=== PATIENT | female | born 1970 | race Caucasian/White ===

== ENCOUNTER 2017-07-20 13:19 | Emergency (ER) | payer SELFPAY ==
[~2017-07-20] VITALS: Ht 167.6 cm; Wt 136.1 kg
[~2017-07-20 13:19] MED LIST: AMOXICILLIN250 MG PO; ANAPROX DS550 MG PO; ANTIVERT/2525 M1 PO; AUGMENTIN 875875 MG PO; BACTRIM DS 8001 TA1 PO; CARDIZEM LA240 MG PO; CHILDREN'S CLEA10 MG PO; CLARITIN10 MG PO; Duoneb 3ML 3 MG/3 ML NEB; FERRO-TIME325 MG PO; FLEXERIL10 MG PO; FLONASE ALLERG9.9 ML NS; FOLGARD TABLET1 EACH PO; HYDR12.5C PO; IRON325 M1 PO; LISINOPRIL10 M1 PO; LISINOPRIL10 MG PO; LOPRESSOR50 M1 PO; LORATADINE10 MG PO; NAPROSYN EC375 MG PO; OMEPRAZOLE D/R20 MG PO; PREDNICOT20 MG PO; PREDNISONE10 MG PO; PRILOSEC20 M1 PO; PROAIR HFA8.5 GM IH; TRAZODONE50 MG PO; TUDORZA PRESS400 MCG IH; VIBRAMYCIN100 MG PO; VICODIN 5/500 505 MG PO; VITAMIN D2000 IU PO; VITAMIN D32000 UNIT PO; XOPENEX HF0.045 MG/A IH; ZITHROMAX Z-PA250 MG PO; ZITHROMAX500 MG PO; ZOLPIDEM10 MG PO; ZYRTEC10 MG PO
[2017-07-20 13:57] LABS: BASO % 0.5 % (0.0-1.0); EOS # 0.6 10*3/uL (0.0-0.4); EOS % 6.5 % (1.0-4.0); HEMATOCRIT 36.9 % (37.0-47.0); HEMOGLOBIN 11.1 g/dl (12.0-16.0); LYMPH # 1.9 10*3/uL (1.3-4.4); LYMPH % 22.1 % (27.0-41.0); MEAN CELL VOLUME 83.7 fl (81.0-99.0); MEAN CORPUSCULAR HGB 25.2 pg (27.0-31.0); MEAN CORPUSCULAR HGB CONC 30.1 g/dl (33.0-37.0); MEAN PLATELET VOLUME 9.6 fl (9.6-12.3); MONO # 0.5 10*3/uL (0.1-1.0); MONO % 5.7 % (3.0-9.0); NEUT # 5.4 10*3/uL (2.3-7.9); NEUT % 63.7 % (47.0-73.0); PLATELET COUNT AUTOMATED 249 10*3/uL (130-400); RED BLOOD COUNT 4.41 10*6/uL (4.10-5.10); RED CELL DISTRI WIDTH 15.9 % (0-14.5); WHITE BLOOD COUNT 8.5 10*3/uL (4.8-10.8)
[2017-07-20 13:59] LABS: BILIRUBIN NEGATIVE (NEGATIVE); BLOOD TRACE-LYSED (NEGATIVE); CLARITY SL CLOUDY (CLEAR); COLOR ORANGE (YELLOW); GLUCOSE NEGATIVE (NEGATIVE); KETONE NEGATIVE (NEGATIVE); LEUKO ESTERASE 1+ (NEGATIVE); NITRITE POSITIVE (NEGATIVE); SPECIFIC GRAVITY 1.025 (1.005-1.030)
[2017-07-20 14:15] LABS: ALBUMIN 3.3 gm/dl (3.1-4.5); ALKALINE PHOSPHATASE 92 U/L (45-117); BUN 21 mg/dl (7-24); CHLORIDE 106 mmol/L (98-107); CREATININE 0.89 mg/dL (0.55-1.02); POTASSIUM 4.1 mmol/L (3.5-5.1); SGOT/AST 9 IU/L (3-35); SGPT/ALT 19 U/L (12-78); SODIUM 142 mmol/L (136-145)
[2017-07-20 14:19] LABS: BACTERIA 1+; EPITHELIAL CELLS TNTC
[2017-07-20] MEDS ORDERED: PYRIDIUM200 M1 PO (14:25)
[2017-07-20] MEDS ORDERED: Bactrim DS PO (14:25)
== END 2017-07-20 18:06 | disposition home or self-care (01) ==
LOC: ED 13:19
PROVIDERS: Nurse Practitioner Family
DX: N39.0 Urinary tract infection, site not specified (principal); J45.909 Unspecified asthma, uncomplicated; I10 Essential (primary) hypertension; E66.9 Obesity, unspecified; Z79.899 Other long term (current) drug therapy

== ENCOUNTER 2017-07-23 22:36 | Emergency (ER) | payer SELFPAY ==
[~2017-07-23] VITALS: Ht 167.6 cm; Wt 136.1 kg
[~2017-07-23 22:36] MED LIST changes: +Bactrim DS PO; +PYRIDIUM200 M1 PO
[2017-07-23 23:46] LABS: BILIRUBIN NEGATIVE (NEGATIVE); BLOOD 1+ (NEGATIVE); CLARITY CLEAR (CLEAR); COLOR YELLOW (YELLOW); GLUCOSE NEGATIVE (NEGATIVE); KETONE NEGATIVE (NEGATIVE); LEUKO ESTERASE TRACE (NEGATIVE); NITRITE NEGATIVE (NEGATIVE); PH 5.5 (5.0-9.0); SPECIFIC GRAVITY >= 1.030 (1.005-1.030); UROBILINOGEN 0.2 E.U./dl (0.2-1.0)
[2017-07-23 23:55] LABS: EPITHELIAL CELLS 20-25
[2017-07-23 23:56] LABS: BACTERIA TRACE
[2017-07-24] MEDS ORDERED: KETOROLAC10 MG PO (00:13)
[2017-07-24] MEDS ORDERED: Orphenadrine C100 MG PO (00:13)
== END 2017-07-24 00:34 | disposition home or self-care (01) ==
LOC: ED 22:36
PROVIDERS: Emergency Medicine Emergency Medical Services
DX: S39.012A Strain of muscle, fascia and tendon of lower back, initial encounter (principal); I10 Essential (primary) hypertension; Z88.8 Allergy status to other drugs, medicaments and biological substances; X50.9XXA Other and unspecified overexertion or strenuous movements or postures, initial encounter; Y93.89 Activity, other specified; Y92.9 Unspecified place or not applicable; Y99.9 Unspecified external cause status

== ENCOUNTER 2017-07-30 13:21 | Emergency (ER) | payer SELFPAY ==
[~2017-07-30] VITALS: Ht 167.6 cm; Wt 136.1 kg
[~2017-07-30 13:21] MED LIST changes: +KETOROLAC10 MG PO; +Orphenadrine C100 MG PO
[2017-07-30] MEDS ORDERED: MEDROL DOSEPAK4 MG PO (13:43)
[2017-07-30] MEDS ORDERED: Orphenadrine C100 MG PO (13:44)
== END 2017-07-30 14:17 | disposition home or self-care (01) ==
LOC: ED 13:21
DX: M54.5 Low back pain (principal); J45.909 Unspecified asthma, uncomplicated; I10 Essential (primary) hypertension; E66.9 Obesity, unspecified; Z79.899 Other long term (current) drug therapy

== ENCOUNTER 2018-10-25 22:54 | Inpatient (IN) | payer OTHER ==
[~2018-10-25] VITALS: Ht 170.1 cm; Wt 146.5 kg
--- NOTE | ~2018-10-25 | EKG ---
[place], [place] ELECTROCARDIOGRAM REPORT NAME: CHRISTO RICHARDSON UNIT #: [id number] ROOM: 427 DOCTOR: ELODIA DRAFT REPORT BIRTHDATE: [address] [facility] Test Date: 2018-10-26 Test Time: 06:46:51 Pat Name: CHRISTO RICHARDSON Department: Room: 427 Gender: F Electric Crane Operator: Elyssa Leslie : 1970 Requested By: BI ALLEN Order Number: [id number] Reading MD: Maikol Tam MD Measurements Intervals [place] Rate: 59 P: 16 NM: 169 QRS: 36 QRSD: 94 T: 3 QT: 455 QTc: 451 Interpretive Statements Sinus rhythm Low voltage, precordial leads Electronically Signed On 10-27-2018 7:53:08 PST by Maikol Tam MD CM:EKGRPT:ELECTROCARDIOGRAM REPORT [id number] BI WATKINS DRAFT REPORT BI ALLEN DO
--- NOTE | ~2018-10-25 | EKG ---
[place], [place] ELECTROCARDIOGRAM REPORT NAME: CHRISTO RICHARDSON UNIT #: [id number] ROOM: 427 DOCTOR: ELODIA DRAFT REPORT BIRTHDATE: [birth year] [facility] Test Date: 2018-10-26 Test Time: 10:53:33 Pat Name: CHRISTO RICHARDSON Department: Room: 427 Gender: F Inspector Packager: Elyssa Leslie : 1970 Requested By: BI ALLEN Order Number: [id number] Reading MD: Maikol Tam MD Measurements Intervals [place] Rate: 71 P: 21 GA: 156 QRS: 15 QRSD: 89 T: -22 QT: 386 QTc: 420 Interpretive Statements Sinus rhythm Low voltage, precordial leads Borderline repolarization abnormality Baseline wander in lead(s) II,III,aVF Electronically Signed On 10-27-2018 7:53:17 PST by Maikol Tam MD CM:EKGRPT:ELECTROCARDIOGRAM REPORT [id number] BI WATKINS DRAFT REPORT BI ALLEN DO
--- NOTE | ~2018-10-25 | EKG ---
[place], [place] ELECTROCARDIOGRAM REPORT NAME: CHRISTO RICHARDSON UNIT #: [id number] ROOM: 427 DOCTOR: ELODIA DRAFT REPORT BIRTHDATE: [birth year] [facility] Test Date: 2018-10-25 Test Time: 23:01:38 Pat Name: CHRISTO RICHARDSON Department: Room: 427 Gender: F Shale Planer Operator Helper: Amira Ayoub : 1970 Requested By: BI ALLEN Order Number: [id number] Reading MD: Maikol Tam MD Measurements Intervals [place] Rate: 94 P: 26 HI: 149 QRS: 22 QRSD: 88 T: -7 QT: 375 QTc: 469 Interpretive Statements Sinus rhythm Low voltage, precordial leads Borderline T abnormalities, anterior leads Electronically Signed On 10-27-2018 7:52:59 PST by Maikol Tam MD CM:EKGRPT:ELECTROCARDIOGRAM REPORT [id number] BI WATKINS DRAFT REPORT BI ALLEN DO
[~2018-10-25 22:54] MED LIST changes: +MEDROL DOSEPAK4 MG PO
[2018-10-25 22:58] VITALS: BP 164/94
[2018-10-25 23:29] LABS: BASO # 0.1 10*3/uL (0.0-0.1); BASO % 0.4 % (0.0-1.0); EOS # 0.3 10*3/uL (0.0-0.4); EOS % 2.3 % (1.0-4.0); HEMATOCRIT 39.9 % (37.0-47.0); LYMPH # 2.3 10*3/uL (1.3-4.4); LYMPH % 17.8 % (27.0-41.0); MEAN CELL VOLUME 81.9 fl (81.0-99.0); MEAN CORPUSCULAR HGB 24.6 pg (27.0-31.0); MEAN CORPUSCULAR HGB CONC 30.1 g/dl (33.0-37.0); MONO # 0.9 10*3/uL (0.1-1.0); MONO % 6.7 % (3.0-9.0); NEUT # 9.3 10*3/uL (2.3-7.9); NEUT % 72.3 % (47.0-73.0); PLATELET COUNT AUTOMATED 266 10*3/uL (130-400); RED BLOOD COUNT 4.87 10*6/uL (4.10-5.10); RED CELL DISTRI WIDTH 15.9 % (0-14.5); WHITE BLOOD COUNT 12.8 10*3/uL (4.8-10.8)
[2018-10-25 23:30] VITALS: BP 154/95
[2018-10-25 23:30] LABS: ALBUMIN 3.6 gm/dl (3.1-4.5); ALKALINE PHOSPHATASE 108 U/L (45-117); BUN 12 mg/dl (7-24); CHLORIDE 108 mmol/L (98-107); CREATININE 1.01 mg/dL (0.55-1.02); POTASSIUM 3.8 mmol/L (3.5-5.1); SGOT/AST 15 IU/L (3-35); SGPT/ALT 17 U/L (12-78); SODIUM 141 mmol/L (136-145); TOTAL PROTEIN 7.5 gm/dL (6.4-8.2)
[2018-10-25 23:31] LABS: TROPONIN I < 0.015 ng/ml (<0.045)
[2018-10-26] VITALS: BP 137/80
[2018-10-26 00:30] VITALS: BP 141/74
[2018-10-26 01:47] LABS: BASO % 0.3 % (0.0-1.0); EOS # 0.1 10*3/uL (0.0-0.4); EOS % 1.1 % (1.0-4.0); HEMATOCRIT 35.6 % (37.0-47.0); HEMOGLOBIN 10.8 g/dl (12.0-16.0); LYMPH # 2.4 10*3/uL (1.3-4.4); LYMPH % 19.1 % (27.0-41.0); MEAN CELL VOLUME 81.7 fl (81.0-99.0); MEAN CORPUSCULAR HGB 24.8 pg (27.0-31.0); MEAN CORPUSCULAR HGB CONC 30.3 g/dl (33.0-37.0); MEAN PLATELET VOLUME 9.2 fl (9.6-12.3); MONO # 0.7 10*3/uL (0.1-1.0); MONO % 5.8 % (3.0-9.0); NEUT # 9.1 10*3/uL (2.3-7.9); NEUT % 73.3 % (47.0-73.0); PLATELET COUNT AUTOMATED 243 10*3/uL (130-400); RED BLOOD COUNT 4.36 10*6/uL (4.10-5.10); RED CELL DISTRI WIDTH 15.9 % (0-14.5); WHITE BLOOD COUNT 12.4 10*3/uL (4.8-10.8)
[2018-10-26 01:59] LABS: ACT PARTIAL THROMBO TIME 24.3 SECONDS (20.8-31.5)
[2018-10-26 02:04] LABS: ALBUMIN 3.3 gm/dl (3.1-4.5); ALKALINE PHOSPHATASE 99 U/L (45-117); BUN 12 mg/dl (7-24); CHLORIDE 108 mmol/L (98-107); CHOLESTEROL 142 mg/dL (<200); CREATININE 0.92 mg/dL (0.55-1.02); HDL CHOLESTEROL 44 mg/dl (40-60); PHOSPHOROUS 3.1 mg/dL (2.5-4.9); SGOT/AST 12 IU/L (3-35); SGPT/ALT 17 U/L (12-78); SODIUM 144 mmol/L (136-145); TOTAL PROTEIN 6.8 gm/dL (6.4-8.2)
[2018-10-26 02:12] LABS: FREE T4 1.03 ng/dl (0.76-1.46); LDL CHOLESTEROL 80 mg/dL (9-159); TRIGLYCERIDES 88 mg/dl (<150); VLDL CHOLESTEROL 18 mg/dL (6-40)
[2018-10-26 08:49] LABS: VITAMIN D, 25-HYDROXY 16.9 ng/mL (30-100)
[2018-10-26 12:00] VITALS: BP 119/61
== END 2018-10-26 18:16 | disposition home or self-care (01) | DRG 313 ==
LOC: ED 22:54 → EDHOLD 10-26 → 4E 10-26 00:30
PROVIDERS: Internal Medicine; Student in an Organized Health Care Education/Training Program
DX: R07.9 Chest pain, unspecified (principal); R65.10 Systemic inflammatory response syndrome (SIRS) of non-infectious origin without acute organ dysfunction; Z68.41 Body mass index [BMI] 40.0-44.9, adult; D72.825 Bandemia; R00.0 Tachycardia, unspecified; R73.9 Hyperglycemia, unspecified; R55 Syncope and collapse; E66.01 Morbid (severe) obesity due to excess calories; J45.20 Mild intermittent asthma, uncomplicated; J44.9 Chronic obstructive pulmonary disease, unspecified; I10 Essential (primary) hypertension; K21.9 Gastro-esophageal reflux disease without esophagitis; G89.29 Other chronic pain; M54.9 Dorsalgia, unspecified; E66.9 Obesity, unspecified; Z83.3 Family history of diabetes mellitus; Z82.49 Family history of ischemic heart disease and other diseases of the circulatory system; Z80.9 Family history of malignant neoplasm, unspecified

== ENCOUNTER 2018-12-01 08:41 | Emergency (ER) | payer OTHER ==
[2018-12-01] MEDS ORDERED: Ipratropium Brom3 ML INH (08:55)
[2018-12-01] MEDS ORDERED: PROVENTIL HFA6.7 GM INH (08:55)
[2018-12-01] MEDS ORDERED: PRINIVIL10 MG PO (08:55)
[2018-12-01] MEDS ORDERED: PREDNISONE50 MG PO (08:55)
[2019-03-28] MEDS ORDERED: ZITHROMAX250 MG PO (20:22)
[2019-03-28] MEDS ORDERED: PREDNISONE50 MG PO (20:23)
== END 2018-12-01 08:59 | disposition home or self-care (01) ==
LOC: ED 08:41
DX: J20.9 Acute bronchitis, unspecified (principal); J44.9 Chronic obstructive pulmonary disease, unspecified; G89.29 Other chronic pain; K21.9 Gastro-esophageal reflux disease without esophagitis; I10 Essential (primary) hypertension; Z77.22 Contact with and (suspected) exposure to environmental tobacco smoke (acute) (chronic)

== ENCOUNTER 2019-07-02 17:37 | Emergency (ER) | payer OTHER ==
[~2019-07-02] VITALS: Ht 170.1 cm; Wt 127.0 kg
[~2019-07-02 17:37] MED LIST changes: +Ipratropium Brom3 ML INH; +PREDNISONE50 MG PO; +PRINIVIL10 MG PO; +PROVENTIL HFA6.7 GM INH; +ZITHROMAX250 MG PO
[2019-07-02] MEDS ORDERED: PREDNISONE50 MG PO (18:21)
[2019-07-02] MEDS ORDERED: VIBRAMYCIN100 MG PO (18:21)
== END 2019-07-02 18:27 | disposition home or self-care (01) ==
LOC: ED 17:37
DX: J44.1 Chronic obstructive pulmonary disease with (acute) exacerbation (principal); I10 Essential (primary) hypertension; K21.9 Gastro-esophageal reflux disease without esophagitis; E66.9 Obesity, unspecified; Z77.22 Contact with and (suspected) exposure to environmental tobacco smoke (acute) (chronic)

== ENCOUNTER 2019-10-19 08:19 | Emergency (ER) | payer OTHER ==
[~2019-10-19] VITALS: Ht 160 cm; Wt 136.1 kg
[2019-10-19] MEDS ORDERED: PROVENTIL HFA6.7 GM INH (12:11)
[2019-10-19] MEDS ORDERED: TESSALON PERLE100 M1 PO (12:11)
[2019-10-19] MEDS ORDERED: DOXYCYCLINE100 M3 PO (12:11)
[2019-10-19] MEDS ORDERED: PREDNISONE20 M1 PO (12:11)
== END 2019-10-19 12:18 | disposition home or self-care (01) ==
LOC: ED 08:19
DX: J44.1 Chronic obstructive pulmonary disease with (acute) exacerbation (principal); I10 Essential (primary) hypertension; K21.9 Gastro-esophageal reflux disease without esophagitis; Z79.2 Long term (current) use of antibiotics; Z79.899 Other long term (current) drug therapy

== ENCOUNTER 2020-01-16 17:35 | Observation (INO) | payer OTHER ==
[~2020-01-16] VITALS: Ht 165.1 cm; Wt 142.5 kg
[~2020-01-16 17:35] MED LIST changes: +DOXYCYCLINE100 M3 PO; +PREDNISONE20 M1 PO; +TESSALON PERLE100 M1 PO
[2020-01-16 17:54] VITALS: BP 143/74
[2020-01-16 18:04] LABS: BASO % 0.3 % (0.0-1.0); EOS # 0.1 10*3/uL (0.0-0.4); HEMATOCRIT 39.5 % (37.0-47.0); HEMOGLOBIN 12.1 g/dl (12.0-16.0); LYMPH # 0.8 10*3/uL (1.3-4.4); LYMPH % 10.9 % (27.0-41.0); MEAN CELL VOLUME 83.5 fl (81.0-99.0); MEAN CORPUSCULAR HGB 25.6 pg (27.0-31.0); MEAN CORPUSCULAR HGB CONC 30.6 g/dl (33.0-37.0); MEAN PLATELET VOLUME 10.2 fl (9.6-12.3); MONO # 0.5 10*3/uL (0.1-1.0); MONO % 6.8 % (3.0-9.0); NEUT # 5.6 10*3/uL (2.3-7.9); NEUT % 80.4 % (47.0-73.0); PLATELET COUNT AUTOMATED 209 10*3/uL (130-400); RED BLOOD COUNT 4.73 10*6/uL (4.10-5.10); RED CELL DISTRI WIDTH 15.7 % (0-14.5)
[2020-01-16 18:14] LABS: ACT PARTIAL THROMBO TIME 26.1 SECONDS (20.0-32.1)
[2020-01-16 18:21] LABS: ALBUMIN 3.1 gm/dl (3.1-4.5); ALKALINE PHOSPHATASE 110 U/L (45-117); BUN 13 mg/dl (7-24); CHLORIDE 107 mmol/L (98-107); CREATININE 0.84 mg/dL (0.55-1.02); POTASSIUM 3.5 mmol/L (3.5-5.1); SGOT/AST 43 IU/L (3-35); SGPT/ALT 35 U/L (12-78); SODIUM 139 mmol/L (136-145); TOTAL PROTEIN 6.4 gm/dL (6.4-8.2)
[2020-01-16 18:23] LABS: TROPONIN I < 0.015 ng/ml (<0.045)
[2020-01-16 23:20] VITALS: BP 132/86
[2020-01-17 07:31] LABS: BUN 13 mg/dl (7-24); CHLORIDE 106 mmol/L (98-107); CHOLESTEROL 116 mg/dL (<200); CREATININE 0.75 mg/dL (0.55-1.02); PHOSPHOROUS 2.8 mg/dL (2.5-4.9); POTASSIUM 3.1 mmol/L (3.5-5.1); SODIUM 137 mmol/L (136-145); TRIGLYCERIDES 111 mg/dl (<150); VLDL CHOLESTEROL 22 mg/dL (6-40)
[2020-01-17 07:32] LABS: BASO % 0.4 % (0.0-1.0); EOS # 0.1 10*3/uL (0.0-0.4); EOS % 2.4 % (1.0-4.0); HEMATOCRIT 36.1 % (37.0-47.0); LYMPH # 1.3 10*3/uL (1.3-4.4); LYMPH % 27.3 % (27.0-41.0); MEAN CELL VOLUME 83.6 fl (81.0-99.0); MEAN CORPUSCULAR HGB 25.5 pg (27.0-31.0); MEAN CORPUSCULAR HGB CONC 30.5 g/dl (33.0-37.0); MEAN PLATELET VOLUME 9.9 fl (9.6-12.3); MONO # 0.5 10*3/uL (0.1-1.0); MONO % 11.2 % (3.0-9.0); NEUT # 2.7 10*3/uL (2.3-7.9); NEUT % 58.3 % (47.0-73.0); PLATELET COUNT AUTOMATED 190 10*3/uL (130-400); RED BLOOD COUNT 4.32 10*6/uL (4.10-5.10); RED CELL DISTRI WIDTH 15.8 % (0-14.5); WHITE BLOOD COUNT 4.7 10*3/uL (4.8-10.8)
[2020-01-17 07:39] LABS: VITAMIN D, 25-HYDROXY 12.5 ng/mL (30-100)
[2020-01-17 07:41] LABS: HDL CHOLESTEROL 35 mg/dl (40-60); LDL CHOLESTEROL 59 mg/dL (9-159)
[2020-01-17 08:00] VITALS: BP 128/76
[2020-01-17] MEDS ORDERED: VITAMIN D3125 MC1 PO (11:09)
== END 2020-01-17 13:10 | disposition home or self-care (01) ==
LOC: ED 17:35 → EDHOLD 21:42 → 4E 22:15
PROVIDERS: Emergency Medicine; Internal Medicine; ADMIT Internal Medicine
DX: R07.89 Other chest pain (principal); R74.0 Nonspecific elevation of levels of transaminase and lactic acid dehydrogenase [LDH]; E44.0 Moderate protein-calorie malnutrition; M54.9 Dorsalgia, unspecified; I10 Essential (primary) hypertension; J44.9 Chronic obstructive pulmonary disease, unspecified; K21.9 Gastro-esophageal reflux disease without esophagitis; E66.9 Obesity, unspecified

== ENCOUNTER 2020-06-24 15:52 | Observation (INO) | payer OTHER ==
[~2020-06-24] VITALS: Ht 165.1 cm; Wt 148.9 kg
[~2020-06-24 15:52] MED LIST changes: +VITAMIN D3125 MC1 PO
[2020-06-24 16:11] VITALS: BP 151/83
[2020-06-24 16:25] LABS: BASO % 0.5 % (0.0-1.0); EOS # 0.6 10*3/uL (0.0-0.4); EOS % 6.4 % (1.0-4.0); HEMATOCRIT 37.8 % (37.0-47.0); LYMPH # 2.2 10*3/uL (1.3-4.4); LYMPH % 25.3 % (27.0-41.0); MEAN CELL VOLUME 81.1 fl (81.0-99.0); MEAN CORPUSCULAR HGB 24.7 pg (27.0-31.0); MEAN CORPUSCULAR HGB CONC 30.4 g/dl (33.0-37.0); MEAN PLATELET VOLUME 9.7 fl (9.6-12.3); MONO # 0.8 10*3/uL (0.1-1.0); MONO % 9.3 % (3.0-9.0); NEUT # 5.1 10*3/uL (2.3-7.9); NEUT % 58.2 % (47.0-73.0); PLATELET COUNT AUTOMATED 226 10*3/uL (130-400); RED BLOOD COUNT 4.66 10*6/uL (4.10-5.10); RED CELL DISTRI WIDTH 15.9 % (0-14.5); WHITE BLOOD COUNT 8.7 10*3/uL (4.8-10.8)
[2020-06-24 16:35] LABS: ACT PARTIAL THROMBO TIME 27.8 SECONDS (20.0-32.1)
[2020-06-24 16:41] LABS: ALBUMIN 3.1 gm/dl (3.1-4.5); ALKALINE PHOSPHATASE 106 U/L (45-117); BUN 18 mg/dl (7-24); CHLORIDE 111 mmol/L (98-107); CREATININE 0.76 mg/dL (0.55-1.02); POTASSIUM 3.6 mmol/L (3.5-5.1); SGOT/AST 13 IU/L (3-35); SGPT/ALT 20 U/L (12-78); SODIUM 142 mmol/L (136-145); TOTAL PROTEIN 6.9 gm/dL (6.4-8.2)
[2020-06-24 16:42] LABS: TROPONIN I < 0.015 ng/ml (<0.045)
[2020-06-24 17:28] VITALS: BP 150/80
[2020-06-24 18:23] VITALS: BP 156/82
[2020-06-24 18:30] VITALS: BP 150/84
--- NOTE | 2020-06-24 18:30 | NUR ---
A 50, admitted to 5E, under the services of BLANKA Araujo DO with a diagnosis of CHEST PAIN. Chief complaint is CHEST PAIN STARTED AT LEFT CHEST AROUND LEFT BREAST. STATES SHE HAS HAD THIS BEFORE BUT THIS TIME SHE WAS ALSO SOB. STATES SHE WASN'T DOING ANY ACTIVITY BUT WAS LAYING FLAT.. Patient arrived via stretcher from ER. Monitor applied. Initial assessment completed. See assessment for past medical history, medications and allergies. Patient and/or family oriented to unit. [facility]. KAYLEN THAO
[2020-06-24 20:00] VITALS: BP 131/67
--- NOTE | 2020-06-24 21:30 | NUR ---
PT RESTING IN BED WITH HOB ELEVATED. RESP-EASY AND REGULAR. PT HAS PAIN UNDER LEFT BREAST AREA PER PT. DENIES ANY NEED FOR PAIN MEDICATION AT THIS TIME. RATES PAIN 2 ON PAIN SCALE 0-10. CALL LIGHT IN REACH. SEE SHIFT ASSESSMENT.
[2020-06-25] VITALS: BP 126/57
--- NOTE | 2020-06-25 | NUR ---
RESTING IN BED. RESP-EASY AND REGULAR. NO C/O AT THIS TIME. CALL LIGHT IN REACH. SEE SHIFT ASSESSMENT.
--- NOTE | 2020-06-25 04:00 | NUR ---
PT RESTING IN BED WITH EYES CLOSED. RESP-EASY AND REGULAR. CALL LIGHT IN REACH.
--- NOTE | 2020-06-25 06:00 | NUR ---
RESTING IN BED WITH EYES CLOSED. RESP-EASY AND REGULAR. CALL LIGHT IN REACH.
[2020-06-25 06:51] LABS: BASO # 0.1 10*3/uL (0.0-0.1); BASO % 0.6 % (0.0-1.0); EOS # 0.8 10*3/uL (0.0-0.4); EOS % 9.9 % (1.0-4.0); HEMATOCRIT 38.4 % (37.0-47.0); LYMPH # 2.6 10*3/uL (1.3-4.4); LYMPH % 31.6 % (27.0-41.0); MEAN CELL VOLUME 81.4 fl (81.0-99.0); MEAN CORPUSCULAR HGB 23.9 pg (27.0-31.0); MEAN CORPUSCULAR HGB CONC 29.4 g/dl (33.0-37.0); MONO # 0.7 10*3/uL (0.1-1.0); MONO % 8.4 % (3.0-9.0); PLATELET COUNT AUTOMATED 242 10*3/uL (130-400); RED BLOOD COUNT 4.72 10*6/uL (4.10-5.10); WHITE BLOOD COUNT 8.1 10*3/uL (4.8-10.8)
[2020-06-25 07:05] LABS: ACT PARTIAL THROMBO TIME 27.9 SECONDS (20.0-32.1)
[2020-06-25 07:08] LABS: ALKALINE PHOSPHATASE 99 U/L (45-117); BUN 16 mg/dl (7-24); CHLORIDE 110 mmol/L (98-107); CHOLESTEROL 142 mg/dL (<200); FREE T4 1.07 ng/dl (0.76-1.46); HDL CHOLESTEROL 40 mg/dl (40-60); LDL CHOLESTEROL 86 mg/dL (9-159); POTASSIUM 3.5 mmol/L (3.5-5.1); SGOT/AST 14 IU/L (3-35); SGPT/ALT 21 U/L (12-78); SODIUM 141 mmol/L (136-145); TOTAL PROTEIN 6.6 gm/dL (6.4-8.2); TRIGLYCERIDES 78 mg/dl (<150); VLDL CHOLESTEROL 16 mg/dL (6-40)
[2020-06-25 07:46] LABS: VITAMIN D, 25-HYDROXY 24.7 ng/mL (30-100)
[2020-06-25 08:00] VITALS: BP 134/72
--- NOTE | 2020-06-25 08:32 | NUR ---
PT RESTING IN BED/ NO DISTRESS NOTED. WILL MONITOR
--- NOTE | 2020-06-25 09:00 | NUR ---
Controls Engineer in to talk to patient. Patient states lives at home alone with her sisters checking in on her. There are 12-13 steps in the home. Physician: no PCP, would like to follow with the resident clinic. She tried to make an appt with the resident clinic about the same time the pandemic was hitting and the resident clinic was closed. [facility] Home health services: none Patient's level of ADLs: INDEPENDENT Patient has working utilities: yes DME: none Follow-up physician's appointment after d/c: will be made by the hospitalist nurse director upon discharge Does patient want to access PORTAL?: no Discharge plan discussed with patient. She lives at home alone with her sisters checking in on her. She is independent in her ADLs and ambulation. She works as a nurse's aide at [employer]. Discussed home health care services and she declines. CM will continue to follow for nay discharge planning needs. When medically stable she will be discharged to home. She states she drove herself here and plans to drive herself home as she just lives right down the street. MAGEN WARE
[2020-06-25] MEDS ORDERED: VITAMIN D350 MC3 PO (11:32)
--- NOTE | 2020-06-25 12:31 | NUR ---
Discharge instructions reviewed with patient/family. Patient receptive and verbalizes understanding. Follow-up care arranged. Written instructions given to patient/family. TAMMY NICOLAS
== END 2020-06-25 12:31 | disposition home or self-care (01) ==
LOC: ED 15:52 → EDHOLD 18:19 → 5E 18:22
PROVIDERS: Emergency Medicine; Hospitalist; ADMIT Internal Medicine
DX: R07.89 Other chest pain (principal); M54.9 Dorsalgia, unspecified; J45.909 Unspecified asthma, uncomplicated; K21.9 Gastro-esophageal reflux disease without esophagitis; J44.9 Chronic obstructive pulmonary disease, unspecified; I10 Essential (primary) hypertension; E87.8 Other disorders of electrolyte and fluid balance, not elsewhere classified; E44.0 Moderate protein-calorie malnutrition; E55.9 Vitamin D deficiency, unspecified

== ENCOUNTER → 2020-07-12 | Outpatient (CLI) | payer OTHER ==
[~2020-07-12] MED LIST changes: +VITAMIN D350 MC3 PO
== END | disposition home or self-care (01) ==
LOC: LAB 08:01
PROVIDERS: ATTEND Family Medicine
DX: J44.9 Chronic obstructive pulmonary disease, unspecified (principal); J45.909 Unspecified asthma, uncomplicated

== ENCOUNTER → 2020-07-18 | Outpatient (CLI) | payer OTHER | END | disposition home or self-care (01) | LOC: CARD 00:10 | PROVIDERS: ATTEND Family Medicine | DX: R01.1 Cardiac murmur, unspecified (principal) ==

== ENCOUNTER 2020-11-12 18:23 | Emergency (ER) | payer OTHER ==
[2020-11-12] MEDS ORDERED: VALTREX1000 MG PO (18:57)
== END 2020-11-12 19:06 | disposition home or self-care (01) ==
LOC: ED 18:23
DX: B02.9 Zoster without complications (principal); I10 Essential (primary) hypertension; J44.9 Chronic obstructive pulmonary disease, unspecified; K21.9 Gastro-esophageal reflux disease without esophagitis; Z79.899 Other long term (current) drug therapy; Z98.890 Other specified postprocedural states

== ENCOUNTER 2021-01-08 16:54 | Emergency (ER) | payer OTHER ==
[~2021-01-08] VITALS: Wt 136.1 kg
[~2021-01-08 16:54] MED LIST changes: +VALTREX1000 MG PO
[2021-01-08] MEDS ORDERED: PREDNISONE50 MG PO (17:26)
== END 2021-01-08 17:42 | disposition home or self-care (01) ==
LOC: ED 16:54
DX: J45.901 Unspecified asthma with (acute) exacerbation (principal); J44.9 Chronic obstructive pulmonary disease, unspecified; K21.9 Gastro-esophageal reflux disease without esophagitis; I10 Essential (primary) hypertension; E66.01 Morbid (severe) obesity due to excess calories; Z20.822 Contact with and (suspected) exposure to COVID-19; Z79.899 Other long term (current) drug therapy

== ENCOUNTER 2021-02-17 14:40 | Emergency (ER) | payer OTHER ==
[~2021-02-17] VITALS: Ht 167.6 cm; Wt 136.1 kg
[2021-02-17 15:34] LABS: BASO # 0.1 10*3/uL (0.0-0.1); BASO % 0.4 % (0.0-1.0); EOS # 0.4 10*3/uL (0.0-0.4); EOS % 3.6 % (1.0-4.0); HEMATOCRIT 39.6 % (37.0-47.0); LYMPH # 2.5 10*3/uL (1.3-4.4); LYMPH % 22.2 % (27.0-41.0); MEAN CELL VOLUME 83.4 fl (81.0-99.0); MEAN CORPUSCULAR HGB 24.6 pg (27.0-31.0); MEAN CORPUSCULAR HGB CONC 29.5 g/dl (33.0-37.0); MEAN PLATELET VOLUME 9.4 fl (9.6-12.3); MONO # 0.9 10*3/uL (0.1-1.0); MONO % 8.3 % (3.0-9.0); NEUT # 7.3 10*3/uL (2.3-7.9); NEUT % 64.7 % (47.0-73.0); PLATELET COUNT AUTOMATED 271 10*3/uL (130-400); RED BLOOD COUNT 4.75 10*6/uL (4.10-5.10); RED CELL DISTRI WIDTH 15.9 % (0-14.5); WHITE BLOOD COUNT 11.3 10*3/uL (4.8-10.8)
[2021-02-17 15:50] LABS: ACT PARTIAL THROMBO TIME 27.9 SECONDS (20.0-32.1); ALBUMIN 3.1 gm/dl (3.1-4.5); ALKALINE PHOSPHATASE 116 U/L (45-117); BUN 11 mg/dl (7-24); CHLORIDE 107 mmol/L (98-107); CREATININE 0.81 mg/dL (0.55-1.02); LIPASE 60 U/L (73-393); POTASSIUM 3.7 mmol/L (3.5-5.1); SGOT/AST 10 IU/L (3-35); SGPT/ALT 20 U/L (12-78); SODIUM 140 mmol/L (136-145); TOTAL PROTEIN 7.1 gm/dL (6.4-8.2)
[2021-02-17 16:03] LABS: TROPONIN I < 0.015 ng/ml (<0.045)
[2021-02-17] MEDS ORDERED: Motrin,Rufen800 MG PO (17:09)
== END 2021-02-17 17:13 | disposition home or self-care (01) ==
LOC: ED 14:40
PROVIDERS: Emergency Medicine
DX: S86.911A Strain of unspecified muscle(s) and tendon(s) at lower leg level, right leg, initial encounter (principal); M79.604 Pain in right leg; Z79.899 Other long term (current) drug therapy; Z98.890 Other specified postprocedural states; X58.XXXA Exposure to other specified factors, initial encounter; Y93.89 Activity, other specified; Y92.89 Other specified places as the place of occurrence of the external cause; Y99.8 Other external cause status

== ENCOUNTER 2021-03-06 15:18 | Emergency (ER) | payer OTHER ==
[~2021-03-06] VITALS: Ht 167.6 cm; Wt 136.1 kg
[~2021-03-06 15:18] MED LIST changes: +Motrin,Rufen800 MG PO
== END 2021-03-06 18:05 | disposition home or self-care (01) ==
LOC: ED 15:18
DX: T50.905A Adverse effect of unspecified drugs, medicaments and biological substances, initial encounter (principal); Z79.899 Other long term (current) drug therapy; Z98.890 Other specified postprocedural states; Y92.89 Other specified places as the place of occurrence of the external cause

== ENCOUNTER 2021-04-16 22:45 | Emergency (ER) | payer OTHER ==
[~2021-04-16] VITALS: Ht 170.1 cm; Wt 136.1 kg
[2021-04-16 23:19] LABS: BASO % 0.4 % (0.0-1.0); EOS # 0.6 10*3/uL (0.0-0.4); EOS % 6.3 % (1.0-4.0); LYMPH # 2.1 10*3/uL (1.3-4.4); LYMPH % 22.8 % (27.0-41.0); MEAN CELL VOLUME 82.8 fl (81.0-99.0); MEAN CORPUSCULAR HGB 24.8 pg (27.0-31.0); MEAN PLATELET VOLUME 9.2 fl (9.6-12.3); MONO # 0.6 10*3/uL (0.1-1.0); MONO % 6.8 % (3.0-9.0); NEUT # 5.7 10*3/uL (2.3-7.9); PLATELET COUNT AUTOMATED 274 10*3/uL (130-400); RED BLOOD COUNT 4.47 10*6/uL (4.10-5.10); RED CELL DISTRI WIDTH 16.3 % (0-14.5); WHITE BLOOD COUNT 9.1 10*3/uL (4.8-10.8)
[2021-04-16 23:34] LABS: ALBUMIN 2.8 gm/dl (3.1-4.5); ALKALINE PHOSPHATASE 117 U/L (45-117); BUN 15 mg/dl (7-24); CHLORIDE 111 mmol/L (98-107); CREATININE 0.89 mg/dL (0.55-1.02); POTASSIUM 4.1 mmol/L (3.5-5.1); SGOT/AST 8 IU/L (3-35); SGPT/ALT 17 U/L (12-78); SODIUM 138 mmol/L (136-145); TOTAL PROTEIN 6.9 gm/dL (6.4-8.2)
== END 2021-04-17 00:55 | disposition home or self-care (01) ==
LOC: ED 22:45
PROVIDERS: Internal Medicine
DX: B34.9 Viral infection, unspecified (principal); Z20.822 Contact with and (suspected) exposure to COVID-19; R79.82 Elevated C-reactive protein (CRP); E88.09 Other disorders of plasma-protein metabolism, not elsewhere classified; Z79.899 Other long term (current) drug therapy

== ENCOUNTER 2021-10-21 11:02 | Emergency (ER) | payer BC ==
[~2021-10-21] VITALS: Ht 170.1 cm; Wt 136.1 kg
[2021-10-21 12:31] LABS: BASO # 0.1 10*3/uL (0.0-0.1); BASO % 0.7 % (0.0-1.0); EOS # 0.8 10*3/uL (0.0-0.4); EOS % 6.7 % (1.0-4.0); LYMPH # 2.6 10*3/uL (1.3-4.4); LYMPH % 21.9 % (27.0-41.0); MEAN CELL VOLUME 83.7 fl (81.0-99.0); MEAN CORPUSCULAR HGB 24.9 pg (27.0-31.0); MEAN CORPUSCULAR HGB CONC 29.8 g/dl (33.0-37.0); MEAN PLATELET VOLUME 9.7 fl (9.6-12.3); MONO # 0.9 10*3/uL (0.1-1.0); MONO % 7.5 % (3.0-9.0); NEUT # 7.3 10*3/uL (2.3-7.9); NEUT % 62.5 % (47.0-73.0); PLATELET COUNT AUTOMATED 287 10*3/uL (130-400); RED BLOOD COUNT 4.78 10*6/uL (4.10-5.10); RED CELL DISTRI WIDTH 15.7 % (0-14.5); WHITE BLOOD COUNT 11.7 10*3/uL (4.8-10.8)
[2021-10-21 12:46] LABS: BILIRUBIN Negative (Negative); BLOOD Trace-Intact (Negative); CLARITY Clear (Clear); COLOR Yellow (Yellow); GLUCOSE Negative (Negative); KETONE Negative (Negative); LEUKO ESTERASE Negative (Negative); NITRITE Negative (Negative); PH 5.5 (4.5-8.0); SPECIFIC GRAVITY 1.025 (1.001-1.030); UROBILINOGEN 0.2 E.U./dl (0.0-1.0)
[2021-10-21 12:49] LABS: ALKALINE PHOSPHATASE 124 U/L (45-117); BUN 19 mg/dl (7-24); CHLORIDE 107 mmol/L (98-107); CREATININE 0.82 mg/dL (0.55-1.02); LIPASE 102 U/L (73-393); POTASSIUM 4.1 mmol/L (3.5-5.1); SGOT/AST 9 IU/L (3-35); SGPT/ALT 18 U/L (12-78); SODIUM 138 mmol/L (136-145); TOTAL PROTEIN 7.3 gm/dL (6.4-8.2)
[2021-10-21 13:10] LABS: EPITHELIAL CELLS 0-2; RBC 0-2 rbc/hpf (0-2); WBC 0-2 wbc/hpf (0-5)
[2021-10-21] MEDS ORDERED: ZOFRAN4 MG PO (15:38)
== END 2021-10-21 15:43 | disposition home or self-care (01) ==
LOC: ED 11:02
PROVIDERS: Physician Assistant
DX: B34.9 Viral infection, unspecified (principal); Z20.822 Contact with and (suspected) exposure to COVID-19

== ENCOUNTER 2022-04-08 13:16 | Emergency (ER) | payer BC ==
[~2022-04-08 13:16] MED LIST changes: +ZOFRAN4 MG PO
[2022-04-08] MEDS ORDERED: IBU800 MG PO (17:09)
[2022-04-08] MEDS ORDERED: CYCLOBENZAPRINE10 MG PO (17:09)
== END 2022-04-08 17:25 | disposition home or self-care (01) ==
LOC: ED 13:16
DX: M54.41 Lumbago with sciatica, right side (principal)

== ENCOUNTER → 2022-10-09 | Outpatient (CLI) | payer OTHER ==
[~2022-10-09] MED LIST changes: +CYCLOBENZAPRINE10 MG PO; +IBU800 MG PO
[2022-10-09 14:44] LABS: BASO % 0.4 % (0.0-1.0); EOS # 0.4 10*3/uL (0.0-0.4); EOS % 4.7 % (1.0-4.0); HEMATOCRIT 38.7 % (37.0-47.0); LYMPH # 2.5 10*3/uL (1.3-4.4); LYMPH % 30.3 % (27.0-41.0); MEAN CELL VOLUME 82.7 fl (81.0-99.0); MEAN CORPUSCULAR HGB CONC 30.2 g/dl (33.0-37.0); MEAN PLATELET VOLUME 9.2 fl (9.6-12.3); MONO # 0.6 10*3/uL (0.1-1.0); MONO % 6.8 % (3.0-9.0); NEUT # 4.7 10*3/uL (2.3-7.9); NEUT % 57.4 % (47.0-73.0); PLATELET COUNT AUTOMATED 242 10*3/uL (130-400); RED BLOOD COUNT 4.68 10*6/uL (4.10-5.10); RED CELL DISTRI WIDTH 15.9 % (0-14.5); WHITE BLOOD COUNT 8.2 10*3/uL (4.8-10.8)
[2022-10-09 14:59] LABS: ALKALINE PHOSPHATASE 101 U/L (46-116); BUN 9 mg/dl (9-23); CHLORIDE 104 mmol/L (98-107); CREATININE 0.75 mg/dL (0.55-1.02); POTASSIUM 3.8 mmol/L (3.4-5.1); SGPT/ALT 14 U/L (10-49); SODIUM 141 mmol/L (136-145)
[2022-10-09 15:00] LABS: TOTAL PROTEIN 6.8 gm/dL (6.0-8.0)
== END | disposition home or self-care (01) ==
LOC: LAB 14:26
PROVIDERS: ATTEND Family Medicine
DX: J45.20 Mild intermittent asthma, uncomplicated (principal)

== ENCOUNTER 2023-03-24 07:51 | Emergency (ER) | payer OTHER ==
[~2023-03-24] VITALS: Ht 170.1 cm; Wt 136.1 kg
[2023-03-24] MEDS ORDERED: PREDNISONE50 MG PO (09:06)
== END 2023-03-24 09:19 | disposition home or self-care (01) ==
LOC: ED 07:51
DX: J45.909 Unspecified asthma, uncomplicated (principal)

== ENCOUNTER 2023-04-15 17:06 | Emergency (ER) | payer BC ==
[~2023-04-15] VITALS: Ht 167.6 cm; Wt 136.1 kg
[2023-04-15 18:58] LABS: BASO % 0.4 % (0.0-1.0); EOS # 0.4 10*3/uL (0.0-0.4); EOS % 4.7 % (1.0-4.0); HEMATOCRIT 40.8 % (37.0-47.0); LYMPH % 22.4 % (27.0-41.0); MEAN CELL VOLUME 85.7 fl (81.0-99.0); MEAN CORPUSCULAR HGB 25.2 pg (27.0-31.0); MEAN CORPUSCULAR HGB CONC 29.4 g/dl (33.0-37.0); MEAN PLATELET VOLUME 9.3 fl (9.6-12.3); MONO # 0.7 10*3/uL (0.1-1.0); MONO % 7.1 % (3.0-9.0); NEUT # 5.9 10*3/uL (2.3-7.9); PLATELET COUNT AUTOMATED 245 10*3/uL (130-400); RED BLOOD COUNT 4.76 10*6/uL (4.10-5.10); RED CELL DISTRI WIDTH 15.9 % (0-14.5); WHITE BLOOD COUNT 9.1 10*3/uL (4.8-10.8)
[2023-04-15 19:09] LABS: ACT PARTIAL THROMBO TIME 26.3 SECONDS (20.0-32.1)
[2023-04-15 19:26] LABS: ALKALINE PHOSPHATASE 110 U/L (46-116); BUN 16 mg/dl (9-23); CHLORIDE 107 mmol/L (98-107); POTASSIUM 4.3 mmol/L (3.4-5.1); SGPT/ALT 12 U/L (10-49); TOTAL PROTEIN 6.7 gm/dL (6.0-8.0)
[2023-04-15] MEDS ORDERED: PREDNISONE20 M1 PO (20:22)
[2023-04-15] MEDS ORDERED: SEPTDS PO (20:22)
== END 2023-04-15 20:40 | disposition home or self-care (01) ==
LOC: ED 17:06
PROVIDERS: Emergency Medicine
DX: L03.113 Cellulitis of right upper limb (principal); R11.10 Vomiting, unspecified; I10 Essential (primary) hypertension; J44.9 Chronic obstructive pulmonary disease, unspecified; K21.9 Gastro-esophageal reflux disease without esophagitis; Z98.890 Other specified postprocedural states

== ENCOUNTER 2023-05-30 02:01 | Emergency (ER) | payer BC ==
[~2023-05-30] VITALS: Ht 170.1 cm; Wt 138.3 kg
[~2023-05-30 02:01] MED LIST changes: +SEPTDS PO
[2023-05-30 02:20] LABS: BASO % 0.3 % (0.0-1.0); EOS # 0.2 10*3/uL (0.0-0.4); EOS % 1.9 % (1.0-4.0); HEMATOCRIT 37.6 % (37.0-47.0); LYMPH # 0.9 10*3/uL (1.3-4.4); LYMPH % 8.5 % (27.0-41.0); MEAN CELL VOLUME 82.8 fl (81.0-99.0); MEAN CORPUSCULAR HGB 25.6 pg (27.0-31.0); MEAN CORPUSCULAR HGB CONC 30.9 g/dl (33.0-37.0); MEAN PLATELET VOLUME 9.8 fl (9.6-12.3); MONO # 0.7 10*3/uL (0.1-1.0); MONO % 6.6 % (3.0-9.0); NEUT # 8.9 10*3/uL (2.3-7.9); NEUT % 82.1 % (47.0-73.0); PLATELET COUNT AUTOMATED 224 10*3/uL (130-400); RED BLOOD COUNT 4.54 10*6/uL (4.10-5.10); RED CELL DISTRI WIDTH 15.3 % (0-14.5); WHITE BLOOD COUNT 10.8 10*3/uL (4.8-10.8)
[2023-05-30 03:11] LABS: ALKALINE PHOSPHATASE 103 U/L (46-116); BUN 13 mg/dl (9-23); CHLORIDE 108 mmol/L (98-107); POTASSIUM 3.4 mmol/L (3.4-5.1); SGPT/ALT 9 U/L (10-49); TOTAL PROTEIN 6.4 gm/dL (6.0-8.0)
== END 2023-05-30 05:15 | disposition home or self-care (01) ==
LOC: ED 02:01
PROVIDERS: Internal Medicine
DX: R07.89 Other chest pain (principal); R06.02 Shortness of breath; R11.0 Nausea; R51.9 Headache, unspecified; E66.9 Obesity, unspecified; Z98.890 Other specified postprocedural states; Z68.30 Body mass index [BMI] 30.0-30.9, adult

== ENCOUNTER → 2023-06-28 | Outpatient (CLI) | payer BC ==
[~2023-06-28] MED LIST changes: +DULE1ARO1 INH
== END | disposition home or self-care (01) ==
LOC: CARD 06-24 09:00
PROVIDERS: ATTEND Family Medicine
DX: R07.9 Chest pain, unspecified (principal)

== ENCOUNTER → 2023-07-09 | Outpatient (CLI) | payer BC | END | disposition home or self-care (01) | LOC: CARD 02:31 | PROVIDERS: ATTEND Family Medicine | DX: I08.0 Rheumatic disorders of both mitral and aortic valves (principal); R07.9 Chest pain, unspecified ==

== ENCOUNTER 2025-01-06 13:49 | Observation (INO) | payer BC ==
[~2025-01-06] VITALS: Ht 170.1 cm; Wt 154.2 kg
[2025-01-06 13:54] VITALS: BP 144/67
[2025-01-06 16:16] LABS: BASO # 0.1 10*3/uL (0.0-0.1); BASO % 0.5 % (0.0-1.0); EOS # 0.4 10*3/uL (0.0-0.4); EOS % 3.8 % (1.0-4.0); HEMATOCRIT 40.9 % (37.0-47.0); MEAN CELL VOLUME 85.4 fl (81.0-99.0); MEAN CORPUSCULAR HGB 25.5 pg (27.0-31.0); MEAN CORPUSCULAR HGB CONC 29.8 g/dl (33.0-37.0); MEAN PLATELET VOLUME 9.6 fl (9.6-12.3); MONO # 0.7 10*3/uL (0.1-1.0); MONO % 8.1 % (3.0-9.0); NEUT # 6.2 10*3/uL (2.3-7.9); NEUT % 67.7 % (47.0-73.0); PLATELET COUNT AUTOMATED 240 10*3/uL (130-400); RED BLOOD COUNT 4.79 10*6/uL (4.10-5.10); RED CELL DISTRI WIDTH 15.7 % (0-14.5); WHITE BLOOD COUNT 9.1 10*3/uL (4.8-10.8)
[2025-01-06 16:38] LABS: BUN 14 mg/dl (9-23); CHLORIDE 105 mmol/L (98-107); POTASSIUM 3.9 mmol/L (3.4-5.1)
[2025-01-06] MEDS ORDERED: SODIUM CHLORIDE 0.9% 1,000 ML IV ONE (17:10)
[2025-01-06] MEDS ORDERED: Meclizine Hydrochloride 25 MG TAB PO ONE (17:10)
[2025-01-06 19:45] VITALS: BP 167/74
[2025-01-06] MEDS ORDERED: BISACODYL 10 MG SUPP R PRN (21:05)
[2025-01-06] MEDS ORDERED: Magnesium Hydroxide 30 ML UDC PO PRN (21:05)
[2025-01-06] MEDS ORDERED: ACETAMINOPHEN 650 MG SUPP R PRN (21:05)
[2025-01-06] MEDS ORDERED: TEMAZEPAM 15 MG CAP PO PRN (21:05)
[2025-01-06] MEDS ORDERED: ACETAMINOPHEN 325 MG TAB PO PRN (21:05)
[2025-01-06] MEDS ORDERED: BISACODYL 5 MG TAB PO PRN (21:05)
[2025-01-06 21:45] VITALS: BP 154/76
[2025-01-06] MEDS ORDERED: ZESTRIL20 MG PO (22:13)
[2025-01-06] MEDS ORDERED: VENT7GM INH (22:14)
[2025-01-06] MEDS ORDERED: FLUTICASONE P10.6 G1 INH (23:03)
[2025-01-06] MEDS ORDERED: Meclizine Hydrochloride 12.5 MG TAB PO PRN (23:55)
[2025-01-07 06:26] LABS: BASO % 0.5 % (0.0-1.0); EOS # 0.4 10*3/uL (0.0-0.4); HEMATOCRIT 36.4 % (37.0-47.0); MEAN CELL VOLUME 85.6 fl (81.0-99.0); MEAN CORPUSCULAR HGB 25.6 pg (27.0-31.0); MEAN CORPUSCULAR HGB CONC 29.9 g/dl (33.0-37.0); MEAN PLATELET VOLUME 9.8 fl (9.6-12.3); MONO # 0.6 10*3/uL (0.1-1.0); MONO % 7.5 % (3.0-9.0); NEUT % 58.2 % (47.0-73.0); PLATELET COUNT AUTOMATED 239 10*3/uL (130-400); RED BLOOD COUNT 4.25 10*6/uL (4.10-5.10); WHITE BLOOD COUNT 8.6 10*3/uL (4.8-10.8)
[2025-01-07 06:47] LABS: ALKALINE PHOSPHATASE 92 U/L (46-116); BUN 12 mg/dl (9-23); CHLORIDE 106 mmol/L (98-107); POTASSIUM 3.9 mmol/L (3.4-5.1); SGPT/ALT 11 U/L (5-49); TOTAL PROTEIN 6.3 gm/dL (6.0-8.0)
[2025-01-07 08:00] VITALS: BP 149/64
[2025-01-07] MEDS ORDERED: ERGOCALCIFEROL 50,000 IU CAP (1.25 MG) PO ONE (08:15)
[2025-01-07] MEDS ORDERED: Enoxaparin Sodium 40 MG/0.4 ML SYR SC SCH (10:00)
[2025-01-07] MEDS ORDERED: FLUTICASONE PROPIONATE 44 MCG INHALER INH SCH (10:00)
[2025-01-07] MEDS ORDERED: LISINOPRIL 20 MG TAB PO SCH (10:00)
[2025-01-07 12:00] VITALS: BP 166/68
[2025-01-07] MEDS ORDERED: IRON325 M1 PO (15:31)
[2025-01-07] MEDS ORDERED: VITAMIN D325 MCG PO (15:31)
[2025-01-07 16:00] VITALS: BP 139/66
== END 2025-01-07 16:27 | disposition home or self-care (01) ==
LOC: ED 13:49 → EDHOLD 18:32 → 5E 21:31
PROVIDERS: Internal Medicine; Student in an Organized Health Care Education/Training Program; ADMIT Internal Medicine; ATTEND Internal Medicine
DX: R07.89 Other chest pain (principal); R42 Dizziness and giddiness; J44.9 Chronic obstructive pulmonary disease, unspecified; I10 Essential (primary) hypertension; E55.9 Vitamin D deficiency, unspecified; E61.1 Iron deficiency; Z79.899 Other long term (current) drug therapy

== ENCOUNTER 2025-03-17 14:27 | Emergency (ER) | payer BC ==
[~2025-03-17] VITALS: Wt 154.2 kg
[~2025-03-17 14:27] MED LIST changes: +FLUTICASONE P10.6 G1 INH; +VENT7GM INH; +VITAMIN D325 MCG PO; +ZESTRIL20 MG PO
[2025-03-17] MEDS ORDERED: LISINOPRIL10 M1 PO (14:33)
[2025-03-17] MEDS ORDERED: METOPROLOL SUCC25 M2 PO (14:34)
[2025-03-17] MEDS ORDERED: Meclizine Hydrochloride 25 MG TAB PO ONE (15:05)
[2025-03-17] MEDS ORDERED: SODIUM CHLORIDE 0.9% 1,000 ML IV ONE (15:05)
[2025-03-17 15:20] LABS: BASO # 0.1 10*3/uL (0.0-0.1); BASO % 0.6 % (0.0-1.0); EOS # 0.2 10*3/uL (0.0-0.4); EOS % 2.2 % (1.0-4.0); HEMATOCRIT 41.1 % (37.0-47.0); MEAN CELL VOLUME 85.1 fl (81.0-99.0); MEAN CORPUSCULAR HGB 25.7 pg (27.0-31.0); MEAN CORPUSCULAR HGB CONC 30.2 g/dl (33.0-37.0); MEAN PLATELET VOLUME 9.2 fl (9.6-12.3); MONO # 0.5 10*3/uL (0.1-1.0); MONO % 5.9 % (3.0-9.0); NEUT # 6.2 10*3/uL (2.3-7.9); NEUT % 71.9 % (47.0-73.0); PLATELET COUNT AUTOMATED 244 10*3/uL (130-400); RED BLOOD COUNT 4.83 10*6/uL (4.10-5.10); RED CELL DISTRI WIDTH 14.9 % (0-14.5); WHITE BLOOD COUNT 8.6 10*3/uL (4.8-10.8)
[2025-03-17 15:43] LABS: BUN 14 mg/dl (9-23); CHLORIDE 105 mmol/L (98-107); POTASSIUM 3.9 mmol/L (3.4-5.1)
[2025-03-17 15:44] LABS: ETHYL ALCOHOL < 3.0 mg/dl (<3)
[2025-03-17 18:08] LABS: BILIRUBIN Negative (Negative); BLOOD Negative (Negative); CLARITY Cloudy (Clear); COLOR Yellow (Yellow); GLUCOSE Negative (Negative); KETONE Trace (Negative); LEUKO ESTERASE 2+ (Negative); NITRITE Negative (Negative); PH 5.5 (4.5-8.0); UROBILINOGEN 0.2 E.U./dl (0.0-1.0)
[2025-03-17 18:31] LABS: URINE AMPHETAMINES Negative (1000ng/ml); URINE BARBITURATES Negative (200ng/ml); URINE BENZODIAZEPINES Negative (200ng/ml); URINE CANNABINOIDS (THC) Negative (50ng/ml); URINE COCAINE Negative (300ng/ml); URINE METHADONE Negative (300ng/ml); URINE OPIATES Negative (300ng/ml); URINE PHENCYCLIDINE Negative (25ng/ml)
[2025-03-17 18:50] LABS: RBC 0-2 rbc/hpf (0-2); WBC 21-30 wbc/hpf (0-5)
[2025-03-17 18:51] LABS: BACTERIA 4+
[2025-03-17] MEDS ORDERED: CIPRO500 MG PO (18:54)
== END 2025-03-17 19:07 | disposition home or self-care (01) ==
LOC: ED 14:27
PROVIDERS: Internal Medicine
DX: N39.0 Urinary tract infection, site not specified (principal); I10 Essential (primary) hypertension; J44.9 Chronic obstructive pulmonary disease, unspecified; J45.909 Unspecified asthma, uncomplicated; Z79.899 Other long term (current) drug therapy; Z98.890 Other specified postprocedural states

== ENCOUNTER → 2025-03-22 | Outpatient (CLI) | payer BC ==
[~2025-03-22] MED LIST changes: +CIPRO500 MG PO; +METOPROLOL SUCC25 M2 PO
== END | disposition home or self-care (01) ==
LOC: CARD 09:07
PROVIDERS: ATTEND Internal Medicine Cardiovascular Disease
DX: R42 Dizziness and giddiness (principal); R06.09 Other forms of dyspnea; R00.2 Palpitations; I10 Essential (primary) hypertension; E66.01 Morbid (severe) obesity due to excess calories

== ENCOUNTER 2025-09-29 16:59 | Emergency (ER) | payer BC ==
[~2025-09-29] VITALS: Ht 170.1 cm; Wt 149.7 kg
[2025-09-29 18:07] LABS: BASO # 0.0 10*3/uL (0.0-0.1); BASO % 0.4 % (0.0-1.0); EOS # 0.3 10*3/uL (0.0-0.4); EOS % 3.1 % (1.0-4.0); MEAN CELL VOLUME 85.1 fl (81.0-99.0); MEAN CORPUSCULAR HGB 25.7 pg (27.0-31.0); MEAN PLATELET VOLUME 9.6 fl (9.6-12.3); MONO # 0.6 10*3/uL (0.1-1.0); MONO % 6.8 % (3.0-9.0); NEUT # 6.1 10*3/uL (2.3-7.9); NEUT % 65.1 % (47.0-73.0); NUCLEATED RED BLOOD CELL 0.0 % (0.0-0.0); NUCLEATED RED BLOOD CELL 0.0 10*3/uL (0.0-0.0); PLATELET COUNT AUTOMATED 226 10*3/uL (130-400); RED CELL DISTRI WIDTH 15.1 % (0-14.5)
[2025-09-29] MEDS ORDERED: ESCITALOPRAM OX10 MG PO (18:24)
[2025-09-29 18:29] LABS: BUN 11 mg/dl (9-23)
== END 2025-09-29 20:23 | disposition home or self-care (01) ==
LOC: ED 16:59
PROVIDERS: Emergency Medicine
DX: R53.1 Weakness (principal); J44.9 Chronic obstructive pulmonary disease, unspecified; I10 Essential (primary) hypertension; Z98.890 Other specified postprocedural states

== ENCOUNTER 2025-10-20 16:52 | Emergency (ER) | payer BC ==
[~2025-10-20] VITALS: Ht 170.1 cm; Wt 154.2 kg
[~2025-10-20 16:52] MED LIST changes: +ESCITALOPRAM OX10 MG PO
[2025-10-20] MEDS ORDERED: PERCOCET 5-3251 EACH PO (19:16)
[2025-10-20] MEDS ORDERED: VIBRAMYCIN100 MG PO (19:16)
[2025-10-20] MEDS ORDERED: Acetaminophen/Oxycodone 5 MG/325 MG TABLET PO ONE (19:20)
== END 2025-10-20 19:18 | disposition home or self-care (01) ==
LOC: ED 16:52
DX: L02.412 Cutaneous abscess of left axilla (principal); J44.89 Other specified chronic obstructive pulmonary disease; K21.9 Gastro-esophageal reflux disease without esophagitis; I10 Essential (primary) hypertension; Z87.440 Personal history of urinary (tract) infections; Z98.890 Other specified postprocedural states